=== PATIENT | female | born 1980 | race Caucasian/White ===

== ENCOUNTER 2017-12-17 20:48 | Emergency (ER) | payer OTHER ==
[~2017-12-17] VITALS: Ht 177.8 cm; Wt 105.3 kg
[2017-12-17 21:08] VITALS: BP 145/95
== END 2017-12-17 22:06 | disposition home or self-care (01) ==
LOC: ED 21:30
DX: L50.0 Allergic urticaria (principal); J45.909 Unspecified asthma, uncomplicated
CPT/HCPCS: 99283; J7512; Q0177